=== PATIENT | female | born 1955 | race Two or more races ===

== ENCOUNTER → 2017-09-29 | Outpatient (CLI) | payer OTHER | END | disposition home or self-care (01) | LOC: OIH 10:19 | PROVIDERS: ATTEND Internal Medicine Cardiovascular Disease | DX: Z13.6 Encounter for screening for cardiovascular disorders (principal) | CPT/HCPCS: 75571 ==

== ENCOUNTER 2022-08-02 14:51 | Inpatient (IN) | payer BC, MEDICARE ==
[~2022-08-02] VITALS: Ht 157.5 cm; Wt 54.2 kg
[2022-08-02] MEDS ORDERED: ACETAMINOPHEN 500 MG TABLET ONE (15:27)
[2022-08-02] MEDS ORDERED: 0.9%NACL 1000ML 1,000 ML IV ONE ×2 (15:30→19:00)
[2022-08-02] MEDS ORDERED: ACETAMINOPHEN 500 MG TABLET PO ONE (15:30)
[2022-08-02 15:33] LABS: BASOPHILS % (AUTO) 0.2 % (0.0-5.0); EOSINOPHILS % (AUTO) 0.1 % (0.0-8.0); HEMATOCRIT 35.3 % (36-48); LYMPHOCYTES % (AUTO) 19.8 % (21.0-51.0); MEAN CORPUSCULAR HEMOGLOBIN 31.9 pg (27.0-33.0); MEAN CORPUSCULAR HGB CONC 33.1 g/dL (32.0-36.0); MEAN CORPUSCULAR VOLUME 96.2 fL (79-99); MONOCYTES % (AUTO) 7.5 % (3.0-13.0); NEUTROPHILS % (AUTO) 72.1 % (40.0-77.0); PLATELET COUNT (AUTO) 242 K/uL (130-400); RED BLOOD CELL COUNT(AUTO) 3.67 MIL/uL (4.00-5.50); RED CELL DISTRIBUTION WIDTH 11.9 % (11.0-15.5); WHITE BLOOD COUNT (AUTO) 11.7 K/uL (4.8-10.8)
[2022-08-02 15:44] LABS: CREATININE 0.9 mg/dL (0.5-1.5); POTASSIUM 3.5 mmol/L (3.5-5.1)
[2022-08-02] MEDS ORDERED: CEFTRIAXONE 1G VIAL ONE (15:44)
[2022-08-02 15:51] LABS: ALBUMIN 3.2 g/dL (3.5-5.0); TOTAL PROTEIN, SERUM 7.8 g/dL (6.0-8.3)
[2022-08-02] MEDS ORDERED: CEFTRIAXONE 1G VIAL IVP ONE ×3 (16:00→19:30)
[2022-08-02] MEDS ORDERED: ONDANSETRON 4MG INJ IVP ONE (17:30)
[2022-08-02] MEDS ORDERED: MORPHINE 2 MG SYG IVP ONE (17:30)
[2022-08-02 17:41] LABS: APPEARANCE,URINE CLEAR (CLEAR); BILIRUBIN,URINE NEGATIVE (NEGATIVE); COLOR,URINE LIGHT-YELLOW (YELLOW); GLUCOSE, URINE (UA) NEGATIVE (NEGATIVE); KETONES,URINE NEGATIVE (NEGATIVE); LEUKOCYTE ESTERASE ,URINE NEGATIVE Leu/uL (NEGATIVE); NITRATE,URINE NEGATIVE (NEGATIVE); OCCULT BLOOD,URINE NEGATIVE (NEGATIVE); PROTEIN,URINE NEGATIVE (NEGATIVE); UROBILINOGEN,URINE 0.2 mg/dL (0.2-1.0)
[2022-08-02 17:42] LABS: SQUAMOUS EPITHELIAL CELL,UR RARE /HPF (0-2); WBC,URINE 0-1 /HPF (0-1)
[2022-08-02] MEDS ORDERED: MORPHINE 2 MG SYG IV PRN (19:00)
[2022-08-02] MEDS ORDERED: ONDANSETRON 4MG INJ IV PRN (19:00)
[2022-08-02] MEDS ORDERED: NITROGLYCERIN 0.4 MG SL TAB SL PRN (19:00)
[2022-08-02] MEDS ORDERED: KETOROLAC 30MG VIAL (30MG/ML) IM PRN (19:00)
[2022-08-02] MEDS ORDERED: GUAIFENESIN-DM 200/20 MG 10 ML PO PRN (19:00)
[2022-08-02] MEDS ORDERED: ACETAMINOPHEN 325 MG TAB PO PRN (19:00)
[2022-08-02] MEDS: CEFTRIAXONE 2GM VIAL IVP SCH (19:00)
[2022-08-02] MEDS: AZITHROMYCIN 500MG+NS 250ML 250 ML IV SCH (19:37)
[2022-08-02] MEDS: ALBUTEROL 0.083% 2.5 MG/3 ML INH IH PRN (19:52)
[2022-08-02] MEDS: FAMOTIDINE 20MG TAB PO SCH (20:12)
[2022-08-02] MEDS: BENZONATATE 100 MG CAPSULE PO SCH (20:12)
[2022-08-02] MEDS: ATORVASTATIN 20 MG TABLET PO SCH (21:00)
[2022-08-02] MEDS ORDERED: AEC81 PO (21:22)
[2022-08-02] MEDS ORDERED: ATOR20TA65 PO (21:22)
[2022-08-02] MEDS ORDERED: MV-M1TAB20 PO (21:22)
[2022-08-02] MEDS ORDERED: SALM1CAP3 PO (21:22)
[2022-08-02] MEDS ORDERED: DILT30TA3 PO (21:22)
[2022-08-02] MEDS: DILTIAZEM 60MG TAB PO SCH (21:33)
[2022-08-02 22:35] VITALS: BP 111/75
[2022-08-03] MEDS: ALBUTEROL 0.083% 2.5 MG/3 ML INH IH PRN (00:50)
[2022-08-03] MEDS: BENZONATATE 100 MG CAPSULE PO SCH ×3 (03:51→20:37)
[2022-08-03] MEDS: ACETAMINOPHEN 325 MG TAB PO PRN ×2 (03:52→17:03)
[2022-08-03 04:00] VITALS: BP 114/78
[2022-08-03 05:22] LABS: MEAN CORPUSCULAR HEMOGLOBIN 31.9 pg (27.0-33.0); MEAN CORPUSCULAR HGB CONC 33.1 g/dL (32.0-36.0); MEAN CORPUSCULAR VOLUME 96.3 fL (79-99); RED BLOOD CELL COUNT(AUTO) 3.01 MIL/uL (4.00-5.50); RED CELL DISTRIBUTION WIDTH 12.2 % (11.0-15.5)
[2022-08-03 05:45] LABS: CREATININE 0.7 mg/dL (0.5-1.5)
[2022-08-03 06:03] LABS: POTASSIUM 2.8 mmol/L (3.5-5.1)
[2022-08-03] MEDS ORDERED: POTASSIUM CHLORIDE 10% ELIXIR 20 MEQ/15 ML UDCUP PO PRN (06:30)
[2022-08-03] MEDS ORDERED: LIDOCAINE HCL-MPF 1% 2ML VIAL IV PRN (06:30)
[2022-08-03] MEDS ORDERED: POTASSIUM CHLORIDE 20MEQ/100ML 100 ML IV PRN (06:30)
[2022-08-03] MEDS: KCL 20 MEQ ERTAB PO PRN ×4 (08:14→16:38)
[2022-08-03] MEDS: FAMOTIDINE 20MG TAB PO SCH ×2 (08:17→20:37)
[2022-08-03] MEDS: DILTIAZEM 60MG TAB PO SCH ×2 (08:17→20:37)
[2022-08-03] MEDS: ENOXAPARIN SODIUM 40 MG/0.4 ML SYRINGE SQ SCH (08:19)
[2022-08-03 09:23] VITALS: BP 103/68
[2022-08-03] MEDS ORDERED: ACETYLCYSTEINE 10% 100MG/ML 4ML VIAL ONE (11:11)
[2022-08-03] MEDS: IPRATROPIUM 0.5 MG/2.5 ML INH IH SCH ×3 (11:26→23:20)
[2022-08-03] MEDS: ACETYLCYSTEINE 10% 100MG/ML 4ML VIAL IH SCH ×3 (11:37→23:20)
[2022-08-03 12:00] VITALS: BP 91/56
[2022-08-03] MEDS ORDERED: IOHEXOL 350 MG/ML 100ML INFUS..BTL IV ONE (13:21)
[2022-08-03 16:20] VITALS: BP 120/72
[2022-08-03] MEDS ORDERED: 0.9% NACL 250ML 250 ML ONE (18:02)
[2022-08-03] MEDS: CEFTRIAXONE 2GM VIAL IVP SCH (18:35)
[2022-08-03 19:00] VITALS: BP 117/63
[2022-08-03] MEDS: AZITHROMYCIN 500MG+NS 250ML 250 ML IV SCH (19:03)
[2022-08-03] MEDS: ATORVASTATIN 20 MG TABLET PO SCH (20:37)
[2022-08-03 23:41] VITALS: BP 104/66
[2022-08-04 04:00] VITALS: BP 112/74
[2022-08-04 05:01] LABS: HEMATOCRIT 30.9 % (36-48); MEAN CORPUSCULAR HEMOGLOBIN 31.6 pg (27.0-33.0); MEAN CORPUSCULAR HGB CONC 32.4 g/dL (32.0-36.0); MEAN CORPUSCULAR VOLUME 97.8 fL (79-99); RED BLOOD CELL COUNT(AUTO) 3.16 MIL/uL (4.00-5.50); RED CELL DISTRIBUTION WIDTH 12.1 % (11.0-15.5); WHITE BLOOD COUNT (AUTO) 7.1 K/uL (4.8-10.8)
[2022-08-04 05:11] LABS: CREATININE 0.8 mg/dL (0.5-1.5); POTASSIUM 3.8 mmol/L (3.5-5.1)
[2022-08-04] MEDS: IPRATROPIUM 0.5 MG/2.5 ML INH IH SCH (06:50)
[2022-08-04] MEDS: ACETYLCYSTEINE 10% 100MG/ML 4ML VIAL IH SCH (06:50)
[2022-08-04 07:52] VITALS: BP 110/62
[2022-08-04] MEDS: ENOXAPARIN SODIUM 40 MG/0.4 ML SYRINGE SQ SCH (09:00)
[2022-08-04] MEDS: FAMOTIDINE 20MG TAB PO SCH (09:53)
[2022-08-04] MEDS: DILTIAZEM 60MG TAB PO SCH (09:53)
== END 2022-08-04 11:07 | disposition home or self-care (01) | DRG 195 ==
LOC: EDH 14:51 → EDHIP 18:19 → 3CH 22:35
PROVIDERS: ADMIT Hospitalist; ATTEND Hospitalist
DX: J18.9 Pneumonia, unspecified organism (principal); I10 Essential (primary) hypertension; Z20.822 Contact with and (suspected) exposure to COVID-19; E78.5 Hyperlipidemia, unspecified; K21.9 Gastro-esophageal reflux disease without esophagitis; I25.10 Atherosclerotic heart disease of native coronary artery without angina pectoris; D64.9 Anemia, unspecified; E87.6 Hypokalemia; Z86.16 Personal history of COVID-19; Z90.710 Acquired absence of both cervix and uterus; Z88.2 Allergy status to sulfonamides
CPT/HCPCS: 36415; 71045; 71250; 71270; 80048; 80053; 81001; 83605; 84132; 84145; 84484; 85025; 85027; 85378; 85651; 86140; 86738; 87040; 87071; 87205; 87449; 87635; 87804; 93005; 93970; 94640; 94664; C9803; G0378; J0456; J0696; J1650; J2405; J3480; J3490; J7030; J7050; J7608; Q9967